=== PATIENT | female | born 1950 | race Caucasian/White ===

== ENCOUNTER 2017-10-09 23:59 | Emergency (ER) | payer MEDICARE ==
[~2017-10-09] VITALS: Ht 154.9 cm; Wt 96.2 kg
[2017-10-10 00:03] VITALS: BP 142/88
[2017-10-10] MEDS ORDERED: RESTORIL7.5 MG PO (00:11)
[2017-10-10] MEDS ORDERED: ASPIR 8181 MG PO (00:11)
[2017-10-10] MEDS ORDERED: ALBUTEROL2.5 MG/31 INH (00:12)
[2017-10-10] MEDS ORDERED: MOBIC15 MG PO (00:12)
[2017-10-10] MEDS ORDERED: LISINOPRIL10 MG PO (00:13)
[2017-10-10] MEDS ORDERED: SINGULAIR 10 MG10 MG PO (00:13)
[2017-10-10] MEDS ORDERED: XULTOPHY 100 UNI3 ML SUBQ (00:15)
[2017-10-10] MEDS ORDERED: HYDROCODON-ACE1 EAC8 PO (00:15)
[2017-10-10] MEDS ORDERED: CYCLOBENZAPRINE5 MG PO (00:16)
[2017-10-10] MEDS ORDERED: OMEPRAZOLE40 MG PO (00:16)
[2017-10-10] MEDS ORDERED: VIBRAMYCIN 100100 MG PO (00:36)
== END 2017-10-10 00:50 | disposition home or self-care (01) ==
LOC: ER 23:59
DX: S91.301A Unspecified open wound, right foot, initial encounter (principal); S90.31XA Contusion of right foot, initial encounter; Z88.1 Allergy status to other antibiotic agents; Z88.2 Allergy status to sulfonamides; W18.02XA Striking against glass with subsequent fall, initial encounter; Y93.89 Activity, other specified; Y92.89 Other specified places as the place of occurrence of the external cause; Y99.8 Other external cause status